=== PATIENT | male | born 1990 | race Caucasian/White ===

== ENCOUNTER 2022-04-08 08:57 | Day surgery (SDC) | payer OTHER ==
[~2022-04-08] VITALS: Ht 188 cm; Wt 147.4 kg
[~2022-04-08 08:57] MED LIST: NS 1000ML 1,000 ML IV SCH; SODIUM CHLORIDE IRR BOTTLE IR ONE
[2022-04-08 09:19] VITALS: BP 117/66
[2022-04-08] MEDS ORDERED: ZOFRAN ONE (09:37)
[2022-04-08] MEDS ORDERED: XYLOCAINE 2% 5ML VIAL ONE (09:37)
[2022-04-08] MEDS ORDERED: OFIRMEV 100 ML IV ONE (09:37)
[2022-04-08] MEDS ORDERED: DECADRON ONE (09:37)
[2022-04-08] MEDS ORDERED: SUBLIMAZE ONE (09:38)
[2022-04-08] MEDS ORDERED: DIPRIVAN IV ONE (09:38)
[2022-04-08] MEDS ORDERED: VERSED ONE (09:38)
[2022-04-08] MEDS ORDERED: LEVAQUIN 100 ML IV ONE (09:40)
[2022-04-08 10:23] VITALS: BP 136/73
[2022-04-08] MEDS ORDERED: TRAM50TA PO (10:26)
[2022-04-08] MEDS ORDERED: CIPR500T86 PO (10:26)
[2022-04-08] MEDS ORDERED: LACTATED RINGERS 1,000 ML IV SCH (10:30)
[2022-04-08 10:35] VITALS: BP 129/75
[2022-04-08] MEDS ORDERED: TORADOL ONE (10:43)
[2022-04-08] MEDS ORDERED: TORADOL IV ONE (11:00)
--- NOTE | 2022-04-08 11:10 | OPH ---
DATE OF SURGERY: 04/08/2022 DICTATOR NAME: Flako Bauer MD PREOPERATIVE DIAGNOSIS: Sterilization. FINAL DIAGNOSIS: Sterilization. PROCEDURE: Bilateral vasectomy. DESCRIPTION OF PROCEDURE: The patient was brought to the operating room, was put in the supine position in the operating room table. After the patient was given a satisfactory and adequate LMA general anesthesia, the genitalia was then prepped and draped aseptically in the usual manner. First, the left scrotal area was then palpated for the presence of the vas. The vas was brought to the surface below the skin and 2 Allis clamps were placed around it. The incision was then done in the area of the vas and by blunt dissection, the vas was exposed. The clamp was placed underneath it and then 2 clamps were placed on both ends and the portion of the vas was then excised. Both ends were fulgurated and then sutured with a 2-0 chromic catgut. After that, the edges of the skin, there was some minimal bleeding, which was fulgurated. After adequate hemostasis, the skin incision was then approximated with the use of 2-0 chromic catgut in an interrupted fashion. The same procedure was done on the right side. The vas was then isolated and we put 2 Allis clamps and an incision was done in the skin and the vas was then exposed and isolated. Two Clamps were placed in the vas and a portion of the vas was then excised. Both ends were then fulgurated and then sutured with 2-0 chromic catgut. The edges of the skin was then also fulgurated. After adequate hemostasis, the skin incision was then approximated with the use of 2-0 chromic catgut in interrupted fashion. After that there was no more bleeding noted. Procedure was terminated. The patient was then awakened, was transferred to the recovery room in stable condition. Flako Bauer MD DR: TRISTIN FREYD: [id number] RECEIPT: [id number]
== END 2022-04-08 11:10 | disposition home or self-care (01) ==
LOC: SDC 08:57
PROVIDERS: ATTEND Urology
DX: Z30.2 Encounter for sterilization (principal); Z79.899 Other long term (current) drug therapy; Z98.890 Other specified postprocedural states; Z79.01 Long term (current) use of anticoagulants
CPT/HCPCS: 55250; 88302 ×2; A4217; J0131; J1100; J1885; J1956; J2001; J2250; J2405; J3010; J3490